=== PATIENT | male | born 2000 | race Caucasian/White ===

== ENCOUNTER 2022-06-26 18:14 | Emergency (ER) | payer BC ==
[2022-06-26 19:21] LABS: #Basophils 0.1 10x3/uL (0.0-0.2); #Eosinphils 0.1 10x3/uL (0.0-0.5); #Monocytes 0.7 10x3/uL (0.0-1.1); #Neutrophils 8.1 10x3/uL (1.5-8.4); %Basophils 0.5 % (0.0-2.0); %Eosinophils 0.5 % (0.0-6.0); %Lymphocytes 15.3 % (18.0-47.0); %Monocytes 6.7 % (0.0-10.0); %Neutrophils 76.7 % (40.0-75.0); Hemoglobin 15.1 g/dL (13.5-17.5); Mean Corpuscular HGB CONC 34.6 g/dL (32.0-36.0); Mean Corpuscular Hemoglobin 29.5 pg (27.0-33.0); Mean Corpuscular Volume 85.3 fl (81.2-95.1); Mean Platelet Volume 11.1 fl (7.4-10.4); Platelet Count 199 10x3/uL (150-450); RBC Distribution Width 12.4 % (11.5-14.5); Red Blood Cell (RBC) Count 5.11 10x6/uL (4.32-5.72); White Blood Cell (WBC) Count 10.6 10x3/uL (3.5-10.5)
[2022-06-26 19:32] LABS: INR-International Normal Ratio 1.1; Prothrombin Time 11.5 sec (9.5-12.1)
[2022-06-26 19:36] LABS: ALT (SGPT) 9 U/L (8-55); AST (SGOT) 23 U/L (10-45); Albumin 4.8 g/dL (3.5-5.0); Alkaline Phosphatase 88 U/L (50-130); Anion Gap 14 mmol/L (10-20); BUN (Urea Nitrogen) 14 mg/dL (8.4-21.0); Bilirubin, Total 1.4 mg/dL (0.2-1.2); Calc. Creatinine Clearance 0 mL/min (70-130); Calcium 10.3 mg/dL (7.8-10.44); Carbon Dioxide 25 mmol/L (22-29); Chloride 104 mmol/L (98-107); Estimated GFR 92; Globulin 3.3 g/dL (2.4-3.5); Glucose 114 mg/dL (70-105); Magnesium 1.9 mg/dL (1.7-2.2); Potassium 3.8 mmol/L (3.5-5.1); Protein, Total 8.1 g/dL (6.0-8.3); Sodium 139 mmol/L (136-145)
[2022-06-26] MEDS ORDERED: Ibuprofen 200 MG TAB ONE (21:18)
== END 2022-06-26 21:34 | disposition home or self-care (01) ==
LOC: CSHERS 18:14
DX: S02.652A Fracture of angle of left mandible, initial encounter for closed fracture (principal); S00.03XA Contusion of scalp, initial encounter; Y04.0XXA Assault by unarmed brawl or fight, initial encounter
CPT/HCPCS: 36415; 70450; 70486; 76377; 80053; 83735; 85025; 85610